=== PATIENT | female | born 1945 | race Caucasian/White ===

== ENCOUNTER 2024-02-17 12:06 | Observation (INO) | payer MEDICARE, OTHER ==
[2024-02-17 13:46] LABS: BASOPHILS ABSOLUTE AUTO 0.2 K/mm3 (0.0-0.2); EOSINOPHILS ABSOLUTE AUTO 0.1 K/mm3 (0.0-0.4); EOSINOPHILS PERCENT AUTO 0.3 % (0.0-6.0); HEMATOCRIT 42.2 % (37.0-47.0); HEMOGLOBIN 14.4 gm/dl (12.0-16.0); IMMATURE GRAN ABSOLUTE AUTO 0.33 K/mm3 (0.00-0.05); IMMATURE GRAN PERCENT AUTO 2.3 % (0.0-0.4); LYMPHOCYTES ABSOLUTE AUTO 2.4 K/mm3 (1.0-4.8); LYMPHOCYTES PERCENT AUTO 16.5 % (24.0-44.0); MEAN CORPUSCULAR HEMOGLOBIN 32.4 pg (28.0-32.0); MEAN CORPUSCULAR HGB CONC 34.1 g/dl (32.0-36.0); MEAN PLATELET VOLUME 10.3 fl (9.4-12.3); MONOCYTES ABSOLUTE AUTO 1.1 K/mm3 (0.0-0.8); MONOCYTES PERCENT AUTO 7.9 % (0.0-8.0); NEUTROPHILS ABSOLUTE AUTO 10.5 K/mm3 (1.8-7.7); PLATELET COUNT,PLT 210 K/mm3 (150-400); RED BLOOD CELL COUNT 4.44 M/mm3 (4.10-5.30); WHITE BLOOD CELL COUNT,WBC 14.52 K/mm3 (3.9-11.3)
[2024-02-17 14:03] LABS: SLIDE REVIEW ABNORMAL SMEAR
[2024-02-17 14:13] LABS: A/G RATIO 0.8 (1-2); ALBUMIN 3.1 g/dl (3.4-5.0); ANION GAP 15.9 (5-15); BUN/CREATININE RATIO 16.9 (14-18); CALCIUM 9.1 mg/dL (8.5-10.1); CREATININE 1.6 mg/dL (0.55-1.02); EST CRCL DRUG DOSING (CG) 26.08 mL/min; POTASSIUM,K 3.9 mEq/L (3.5-5.1); PROTEIN TOTAL,TP 7.1 g/dl (6.4-8.2)
[2024-02-17 14:32] LABS: CORONAVIRUS COVID-19 NAA NEGATIVE (NEGATIVE); INFLUENZA A NAA NEGATIVE (NEGATIVE); RESPIRATORY SYNCYTIAL VIR NAA NEGATIVE (NEGATIVE)
[2024-02-17] MEDS ORDERED: oxyCODONE 5 MG Tab PO PRN (15:30)
[2024-02-17] MEDS: Heparin Sodium 5,000 Units/ML Vial SUBCUT SCH (16:58)
[2024-02-17] MEDS: cefTRIAXone 1 GM in Sodium Chloride 0.9% 100 ML IV ONE (16:58)
[2024-02-17] MEDS: Furosemide 40 MG/4 ML VIAL IVPUSH ONE (16:58)
[2024-02-17] MEDS: Phenol 1.4% Oral Spray 177 ML Bottle MUCMEM PRN (19:11)
[2024-02-17] MEDS: Insulin Regular, Human 100 Units/ML 3 ML Vial SUBCUT SCH (19:31)
[2024-02-17] MEDS: Codeine/guaiFENesin 10-100 MG/5 ML Syrup 5 ML Syringe PO PRN (22:39)
[2024-02-17] MEDS: hydrALAZINE 10 MG Tab PO STA (23:07)
[2024-02-18 06:16] LABS: BASOPHILS ABSOLUTE AUTO 0.1 K/mm3 (0.0-0.2); BASOPHILS PERCENT AUTO 0.9 % (0.0-1.0); EOSINOPHILS ABSOLUTE AUTO 0.1 K/mm3 (0.0-0.4); EOSINOPHILS PERCENT AUTO 0.9 % (0.0-6.0); HEMATOCRIT 38.3 % (37.0-47.0); IMMATURE GRAN ABSOLUTE AUTO 0.31 K/mm3 (0.00-0.05); LYMPHOCYTES ABSOLUTE AUTO 3.7 K/mm3 (1.0-4.8); LYMPHOCYTES PERCENT AUTO 24.1 % (24.0-44.0); MEAN CORPUSCULAR HEMOGLOBIN 31.8 pg (28.0-32.0); MEAN CORPUSCULAR HGB CONC 33.9 g/dl (32.0-36.0); MEAN CORPUSCULAR VOLUME 93.6 fl (83.0-99.0); MEAN PLATELET VOLUME 10.4 fl (9.4-12.3); MONOCYTES ABSOLUTE AUTO 1.2 K/mm3 (0.0-0.8); MONOCYTES PERCENT AUTO 7.8 % (0.0-8.0); NEUTROPHILS ABSOLUTE AUTO 9.9 K/mm3 (1.8-7.7); NEUTROPHILS PERCENT AUTO 64.3 % (41.0-71.0); PLATELET COUNT,PLT 199 K/mm3 (150-400); RED BLOOD CELL COUNT 4.09 M/mm3 (4.10-5.30); WHITE BLOOD CELL COUNT,WBC 15.44 K/mm3 (3.9-11.3)
[2024-02-18 06:38] LABS: A/G RATIO 0.7 (1-2); ALBUMIN 2.7 g/dl (3.4-5.0); ANION GAP 13.5 (5-15); BILIRUBIN TOTAL 0.7 mg/dL (0.2-1.0); BUN/CREATININE RATIO 17.5 (14-18); CALCIUM 8.4 mg/dL (8.5-10.1); CREATININE 1.2 mg/dL (0.55-1.02); EST CRCL DRUG DOSING (CG) 34.77 mL/min; POTASSIUM,K 3.5 mEq/L (3.5-5.1); PROTEIN TOTAL,TP 6.5 g/dl (6.4-8.2)
[2024-02-18 07:14] LABS: SLIDE REVIEW ABNORMAL SMEAR
[2024-02-18] MEDS ORDERED: Non-Formulary Medication 1 Each (Acetaminophen 650 MG Tablet.Er) PO PRN (07:57)
[2024-02-18] MEDS: Aspirin 81 MG Tab.EC PO SCH (08:40)
[2024-02-18] MEDS: Bumetanide 1 MG/4 ML MDV IVPUSH SCH (09:18)
[2024-02-18] MEDS: FLUTICASONE NASBOTH SCH (10:02)
[2024-02-18] MEDS: HYDRALAZINE 10 MG PO SCH (10:03)
[2024-02-18] MEDS: DOXAZOSIN 2 MG PO SCH (10:03)
[2024-02-18] MEDS: LOSARTAN 100 MG PO SCH (10:04)
[2024-02-18] MEDS: DILTIAZEM 240 MG PO SCH (10:04)
[2024-02-18] MEDS: METFORMIN 500 MG PO SCH (10:05)
[2024-02-18] MEDS: METOPROLOL SUCCINATE 50 MG PO SCH (10:06)
[2024-02-18] MEDS: hydrALAZINE 10 MG Tab PO SCH (11:43)
[2024-02-18] MEDS: Losartan 100 MG Tab PO SCH (11:44)
[2024-02-18] MEDS: Doxazosin 2 MG Tab PO SCH (11:44)
[2024-02-18] MEDS: Fluticasone NASAL Spray 16 GM Bottle NASBOTH SCH (11:46)
[2024-02-18] MEDS: Diltiazem 240 MG Cap.ER PO SCH (11:46)
[2024-02-18] MEDS: Metoprolol Succinate 50 MG Tab.ER PO SCH (11:46)
[2024-02-18] MEDS: metFORMIN 500 MG Tab PO SCH (11:46)
[2024-02-18] MEDS: Polyethylene Glycol 3350 Powder 17 GM Packet PO PRN (18:04)
[2024-02-18] MEDS: Acetaminophen 325 MG Tab PO PRN (20:18)
[2024-02-18] MEDS: LEVOTHYROXINE 137 MCG PO SCH (20:31)
[2024-02-18] MEDS: SIMVASTATIN 10 MG PO SCH (20:32)
[2024-02-18] MEDS ORDERED: Pravastatin 20 MG Tab PO SCH (21:00)
[2024-02-18] MEDS ORDERED: Levothyroxine 25 MCG Tab PO SCH (21:00)
[2024-02-18] MEDS ORDERED: Levothyroxine 112 MCG Tab PO SCH (21:00)
[2024-02-19 05:32] LABS: BASOPHILS ABSOLUTE AUTO 0.1 K/mm3 (0.0-0.2); BASOPHILS PERCENT AUTO 0.5 % (0.0-1.0); EOSINOPHILS ABSOLUTE AUTO 0.3 K/mm3 (0.0-0.4); HEMOGLOBIN 13.4 gm/dl (12.0-16.0); IMMATURE GRAN PERCENT AUTO 3.6 % (0.0-0.4); LYMPHOCYTES ABSOLUTE AUTO 4.6 K/mm3 (1.0-4.8); LYMPHOCYTES PERCENT AUTO 27.7 % (24.0-44.0); MEAN CORPUSCULAR HGB CONC 33.5 g/dl (32.0-36.0); MEAN CORPUSCULAR VOLUME 92.6 fl (83.0-99.0); MEAN PLATELET VOLUME 10.9 fl (9.4-12.3); MONOCYTES ABSOLUTE AUTO 1.1 K/mm3 (0.0-0.8); MONOCYTES PERCENT AUTO 6.8 % (0.0-8.0); NEUTROPHILS ABSOLUTE AUTO 9.8 K/mm3 (1.8-7.7); NEUTROPHILS PERCENT AUTO 59.4 % (41.0-71.0); PLATELET COUNT,PLT 207 K/mm3 (150-400); RED BLOOD CELL COUNT 4.32 M/mm3 (4.10-5.30); WHITE BLOOD CELL COUNT,WBC 16.49 K/mm3 (3.9-11.3)
[2024-02-19 05:36] LABS: ANION GAP 15.8 (5-15); BUN/CREATININE RATIO 18.5 (14-18); CALCIUM 9.7 mg/dL (8.5-10.1); CREATININE 1.3 mg/dL (0.55-1.02); EST CRCL DRUG DOSING (CG) 32.09 mL/min; POTASSIUM,K 3.8 mEq/L (3.5-5.1)
[2024-02-19 07:19] LABS: SLIDE REVIEW ABNORMAL SMEAR
[2024-02-19] MEDS: cefTRIAXone 1 GM in Sodium Chloride 0.9% 100 ML IV SCH (09:31)
[2024-02-19] MEDS: Bumetanide 1 MG Tab PO SCH (09:31)
== END 2024-02-19 14:03 | disposition home or self-care (01) ==
LOC: JD.ED 12:06 → JD.MS 15:00
PROVIDERS: ADMIT Internal Medicine; ATTEND Internal Medicine
DX: I13.0 Hypertensive heart and chronic kidney disease with heart failure and stage 1 through stage 4 chronic kidney disease, or unspecified chronic kidney disease (principal); I50.9 Heart failure, unspecified; E11.22 Type 2 diabetes mellitus with diabetic chronic kidney disease; N18.4 Chronic kidney disease, stage 4 (severe); E03.9 Hypothyroidism, unspecified; Z79.82 Long term (current) use of aspirin; Z79.890 Hormone replacement therapy; Z79.899 Other long term (current) drug therapy; Z88.5 Allergy status to narcotic agent
CPT/HCPCS: 0241U; 36415; 71045; 71045-26; 71046; 71046-26; 80048; 80053; 82947; 83880; 84484; 85025; 93005; 93010; 93307; 94667; 94668; 94760; 94761; 97161-GP; 99284; A9270-GY; J0696; J1644; J1815-GY; J1940; J3490